=== PATIENT | female | born 2000 | race Caucasian/White ===

== ENCOUNTER 2023-07-08 10:28 | Emergency (ER) | payer BC ==
[~2023-07-08] VITALS: Ht 154.9 cm; Wt 79.5 kg
[2023-07-08 11:04] VITALS: TEMP 97.4
[2023-07-08 11:39] LABS: BASO # 0.1 K/mm3 (0.0-0.2); BASO % 0.5 % (0.0-2.0); EOS % 0.2 % (0.0-4.0); GRAN % 74.5 % (42.2-75.2); HEMATOCRIT 43.9 % (37.0-47.0); LYMPH # 1.6 K/mm3 (1.2-3.4); LYMPH % 16.9 % (20.0-51.0); MEAN CELL VOLUME 85 fl (80.0-100.0); MEAN CORPUSCULAR HEMOGLOBIN 27 pg (27-31); MEAN CORPUSCULAR HGB CONC 32 g/dl (33.0-37.0); MONO # 0.7 K/mm3 (0.1-0.6); MONO % 7.6 % (1.7-9.3); PLATELET COUNT 327 K/mm3 (130-400); RED BLOOD COUNT 5.19 M/mm3 (4.10-5.30); REDCELL DISTRIBUTION WIDTH-CV 14.5 % (11.5-14.5)
[2023-07-08 11:53] LABS: ALBUMIN 3.8 gm/dL (3.5-5.0); BILIRUBIN,TOTAL 0.2 mg/dL (0.2-1.2); C-REACTIVE PROTEIN 13.98 mg/dL (0.00-0.50); CALCIUM 10.1 mg/dL (8.4-10.2); CREATININE, serum 0.98 mg/dL (0.57-1.11); TOTAL PROTEIN 8.2 gm/dL (6.2-8.1)
[2023-07-08 12:07] LABS: POTASSIUM 3.6 mmol/L (3.5-4.5)
[2023-07-08 12:34] LABS: COLLECTION METHOD CLEAN CATCH
[2023-07-08 12:57] LABS: MUCOUS Present (NOT PRESENT); SQUAMOUS EPITHELIAL 0-2 /hpf (0-10); URINE BACTERIA Rare /hpf (NONE SEEN); URINE RBC 0-2 /hpf (0-2)
[2023-07-08 13:01] LABS: URINE APPEARANCE Turbid (CLEAR/HAZY); URINE COLOR Yellow (YELLOW); URINE GLUCOSE Negative (NEGATIVE); URINE KETONE TRACE (NEGATIVE); URINE NITRATE Negative (NEGATIVE); URINE PROTEIN(semi-quant) 1+ (NEGATIVE); URINE UROBILINOGEN 0.2 E.U/dL (0.2-1.0)
[2023-07-08 13:02] LABS: URINE BLOOD 2+ (NEGATIVE)
[2023-07-08 13:27] LABS: CLOSTRIDIUM DIFF A/B NEG
[2023-07-08 14:01] VITALS: BP 143/99; PULSE 91
== END 2023-07-08 14:01 | disposition home or self-care (01) ==
LOC: COL.ER 10:28
PROVIDERS: Nurse Practitioner
DX: A04.5 Campylobacter enteritis (principal)
CPT/HCPCS: J7030